=== PATIENT | male | born 1995 | race Caucasian/White ===

== ENCOUNTER → 2023-09-01 | Outpatient (CLI) | payer OTHER ==
--- NOTE | 2023-09-01 11:31 | CT ---
EXAMINATION TYPE: CT abdomen pelvis w con DATE OF EXAM: 09/01/2023 COMPARISON: none HISTORY: Diverticulitis of large intestine w/o preforation or abscess. PT c/o very painful bowel move ments and pressure. CT DLP: 1958 mGycm CONTRAST: CT scan of the abdomen and pelvis is performed with Oral Contrast and with IV Contrast, patient injec esau with 100 mL of Isovue 300. FINDINGS: LUNG BASES-: No visible nodule. No infiltrate. LIVER/GB: No calcified gallstones. There is mild hepatic steatosis. No space occupying hepatic les ion. Biliary tree is of normal caliber. PANCREAS: No inflammation. No distinct mass. SPLEEN: No splenic enlargement. No lesion seen. ADRENALS: No nodule. No thickening. KIDNEYS/BLADDER: No hydronephrosis. No nephrolithiasis. No distinct renal mass. Urinary bladder g rossly unremarkable. BOWEL: Normal appendix. Moderate fecal stasis left hemicolon. Sigmoid diverticulosis without divertic ulitis this time. No evidence for abscess or free air. No bowel obstruction appreciated. GENITAL ORGANS: No gross abnormality. LYMPH NODES: No greater than 1cm abdominal or pelvic lymph nodes are appreciated. AORTA: No significant abnormality. OSSEOUS STRUCTURES: No significant abnormality is seen. OTHER: No significant additional abnormality is seen. IMPRESSION: 1. Moderate fecal stasis left hemicolon. Sigmoid diverticulosis without diverticulitis this time. No evidence for abscess or free air.
== END ==
LOC: RADCTMAIN 09:22
PROVIDERS: ATTEND Internal Medicine Geriatric Medicine
DX: K57.32 Diverticulitis of large intestine without perforation or abscess without bleeding (principal); K59.89 Other specified functional intestinal disorders
CPT/HCPCS: 74177; Q9967

== ENCOUNTER → 2023-11-08 | Outpatient (CLI) | payer OTHER ==
--- NOTE | 2023-11-08 11:54 | XR ---
EXAMINATION TYPE: XR abdomen 1V DATE OF EXAM: 11/08/2023 COMPARISON: CT abdomen pelvis 09/01/2023 HISTORY: Constipation TECHNIQUE: Single supine KUB image of the abdomen is obtained FINDINGS: Small bowel demonstrates no evidence for dilatation or air fluid levels. Nonobstructive bowel gas pattern. Moderate amount of stool present within the right colon. No convincing evidence for pneumoperitoneum. No unusual calcifications. The lung bases are clear. The osseous structures are intact. IMPRESSION: Nonobstructive bowel gas pattern with moderate fecal burden within the right colon.
== END | disposition home or self-care (01) ==
LOC: RADXRMAIN 11:29
PROVIDERS: ATTEND Internal Medicine Geriatric Medicine
DX: K59.00 Constipation, unspecified (principal)
CPT/HCPCS: 74018